=== PATIENT | female | born 1965 | race African-American/Black ===

== ENCOUNTER 2016-12-07 13:36 | Emergency (ER) | payer MEDICAID ==
[~2016-12-07] VITALS: Ht 162.6 cm; Wt 63.6 kg
[2016-12-07 13:37] VITALS: Ht 162.6 cm; Wt 63.6 kg
--- NOTE | 2016-12-07 16:14 | RADRPT ---
PROCEDURE: CT cervical spine without contrast. CLINICAL INDICATION: Injury. Post traumatic neck pain following a fall TECHNIQUE: CT of the cervical spine without contrast was performed. Axial images were obtained th rough the cervical spine and reformatted at 1.25 mm slice thickness. Coronal and sagittal images wer e reformatted. Exam CTDIvol = 22.26 mGy and DLP = 513.09 mGy-cm. COMPARISON: None available. FINDINGS: Vertebral bodies: The lordosis is reversed. Moderate anterior spondylosis from the inferior C5-2 di stal through C7 levels is present. Stature is preserved at each level. There is normal mineralizat ion and trabeculation. The C1 ring is intact and the predental space is normal. The occipital cond yles are normal in location. Central canal and cervical spinal cord: No abnormal density within the spinal cord is evident and no intraspinal masses are delineated. C2-3: The disk is within normal limits. The facet joints are normal. The uncovertebral joints and f oramina are unremarkable. The posterior elements and paraspinal soft tissues are unremarkable. C3-4: The disk is within normal limits. Mild left facet arthropathy is present the right facet esther nt is normal. The uncovertebral joints and foramina are unremarkable.The posterior elements and par aspinal soft tissues are unremarkable. C4-5: The disk is within normal limits. Moderate to severe left facet arthropathy is present contr ibuting to moderate left foraminal stenosis. The right facet joint, uncovertebral joints and right f oramen are unremarkable. The posterior elements and paraspinal soft tissues are unremarkable. C5-6: Moderate anterior spondylosis with trace disk bulging but no protrusion or central stenosis. The facet joints are normal. The uncovertebral joints and foramina are unremarkable. The posteri or elements and paraspinal soft tissues are unremarkable. C6-7: Moderate anterior spondylosis with mild loss of disk stature and trace disk bulging without protrusion or central stenosis. The facet joints are normal. The uncovertebral joints and foramina are unremarkable. The posterior elements and paraspinal soft tissues are unremarkable. C7-T1: The disk is within normal limits. Minimal bilateral facet arthropathy is present. The uncove rtebral joints and foramina are unremarkable.The posterior elements and paraspinal soft tissues are unremarkable. Non spine related findings: No abnormalities of significance are seen. RPTAT:HJJR IMPRESSION: 1. No evidence of cervical spine fracture or subluxation. 2. Reversal of the normal cervical lordosis may be positioning but cannot exclude muscle spasm. 3. Anterior spondylosis with minimal degenerative disk disease at the C5-6 and C6-7 but no associat ed stenosis. 4. Facet arthropathy most pronounced on the left at C4-5 with associated left foraminal stenosis. Jluis Osborn Physician Date Time Electronically viewed and signed by Jluis Osborn Physician on 12/07/2016 16:14 JR/
--- NOTE | 2016-12-07 16:15 | RADRPT ---
PROCEDURE: CT brain without contrast CLINICAL INDICATION: Status post fall with post traumatic headaches TECHNIQUE: A CT of the brain was performed utilizing axial sections from the skull base through th e vertex without contrast. Sagittal and coronal images were also reformatted. The exam CTDIvol = 44. 95 mGy and DLP = 900.28 mGy-cm. COMPARISON: None available FINDINGS: No acute intracranial hemorrhage is identified. There is no mass effect or midline shift. No extra -axial fluid collection is seen. The ventricles and sulci are within normal limits for size and con figuration. The density of the brain is within normal limits. Chase-white differentiation is preser perla. Incidental small smooth outer table osteoma is noted involving the left parietal bone at the convexi ty. There is no evidence of fracture, the skull base is intact. The mastoid air cells and visualiz ed paranasal sinuses are clear. RPTAT:HJJR IMPRESSION: Unremarkable noncontrast CT of the brain. Physician Melina Date Time Electronically viewed and signed by Physician Melina on 12/07/2016 16:15 /
--- NOTE | 2016-12-07 16:18 | RADRPT ---
PROCEDURE: CT facial bones without contrast CLINICAL INDICATION: Status post fall with post traumatic facial bone pain. TECHNIQUE: A CT of the face without contrast was performed utilizing axial sections from the romero ble through the orbits. Coronal and sagittal images were also reformatted. The exam CTDIvol = 29.35 mGy and DLP = 507.19 mGy-cm. COMPARISON: None available. FINDINGS: Frontal bone: Intact with the sinuses clear bilaterally. No fracture is present. Ethmoid bone: Intact, the sinuses are clear. Maxilla: Intact, the sinuses are clear bilaterally. Nasal bones: Intact bilaterally. Zygomata: Intact bilaterally. Sphenoid bone: Intact, the sinuses are clear. Mandible: Intact, the temporal mandibular joints are unremarkable. Incidental note is made that the patient is missing the right second molar, tooth #31 Temporal bones: Visualized portions are intact, the included mastoid air cells appear clear. Soft tissues: The results are unremarkable. There is no retrobulbar hematoma or proptosis. RPTAT:HJJR IMPRESSION: Unremarkable CT of the facial bones without contrast. Physician Melina Date Time Electronically viewed and signed by Physician Melina on 12/07/2016 16:18 /
--- NOTE | 2016-12-07 17:38 | ERD ---
ER Documentation Chief Complaint Date/Time DATE: 12/07/16 TIME: 17:38 Chief Complaint BIBA D/T ETOH INTOXICATION HPI Patient is a 51-year-old female with alcohol abuse who presents with altered mental status. Please note the history and physical exam is limited secondary to the patient's altered mental status at this time. The patient was brought in by ambulance. She was drinking vodka witnessed by the paramedics. She admits to alcohol. She has an abrasion to the right side of her face. She is not speaking to me at this time. Upon review of old medical records this is the patient's fifth visit to the ER since 2006. She has previous visits for alcohol abuse. Review of the emergency department information exchange shows visits to 3 separate emergency departments. ROS All systems reviewed and are negative except as per history of present illness. Medications Home Meds No Active Prescriptions or Reported Meds Allergies Allergies: Coded Allergies: No Known Allergy (Verified , 10/15/11) PMhx/Soc Medical and Surgical Hx: Unable to obtain History of Surgery: No Anesthesia Reaction: No Hx Neurological Disorder: No Hx Respiratory Disorders: No Hx Cardiac Disorders: No Hx Psychiatric Problems: No Hx Miscellaneous Medical Probl: No Hx Alcohol Use: Yes (FOUND DRINKING PER EMS REPORT) Smoking Status: Unknown if ever smoked FmHx Unable to obtain Physical Exam Vitals Vital Signs Date Time Temp Pulse Resp B/P Pulse Ox O2 Delivery O2 Flow Rate FiO2 12/07/16 13:37 98.4 104 20 129/80 100 Physical Exam Const: Intoxicated Head: Abrasion to right face Eyes: Normal Conjunctiva ENT: Normal External Ears, Nose and Mouth. Neck: Full range of motion..~ No meningismus. Resp: Clear to auscultation bilaterally Cardio: Regular rate and rhythm, no murmurs Abd: Soft, non tender, non distended. Normal bowel sounds Skin: No petechiae or rashes Back: No midline or flank tenderness Ext: No cyanosis, or edema Neur: Awake but nonverbal at this time Results 24 hrs Laboratory Tests Test 12/07/16 13:56 Bedside Glucose 74mg/dL Procedures/MDM CT head, face, and cervical spine showed no acute traumatic process per radiology. Accu-Chek is normal. Patient is a 51-year-old female presents with acute alcohol intoxication. She was watched in the emergency department for over 4 hours and is now awake, steady on her feet, and talking. I believe the patient likely drank too much alcohol. I doubt hypo-or hyperglycemia. I doubt skull fracture or intracranial hemorrhage. At this point I believe outpatient management is appropriate and she should avoid drinking alcohol to excess in the future. She can return for any worsening symptoms. Observation Note: Time: 4 hours Family Hx: Unable to obtain Evaluation: Multiple exams showed improving symptoms and no evidence of clinical decompensation. Departure Diagnosis: Primary Impression: Altered mental status Altered mental status type: unspecified Qualified Code: R41.82 - Altered mental status, unspecified altered mental status type Additional Impression: Alcoholic intoxication Complication of substance-induced condition: with delirium Qualified Code: F10.121 - Alcoholic intoxication, with delirium Condition: Fair Patient Instructions: Alcohol Intoxication Referrals: [facility] YOU HAVE RECEIVED A MEDICAL SCREENING EXAM AND THE RESULTS INDICATE THAT YOU DO NOT HAVE A CONDITION THAT REQUIRES URGENT TREATMENT IN THE EMERGENCY DEPARTMENT. FURTHER EVALUATION AND TREATMENT OF YOUR CONDITION CAN WAIT UNTIL YOU ARE SEEN IN YOUR DOCTORS OFFICE WITHIN THE NEXT 1-2 DAYS. IT IS YOUR RESPONSIBILITY TO MAKE AN APPOINTMENT FOR FOLOW-UP CARE. IF YOU HAVE A PRIMARY DOCTOR --you should call your primary doctor and schedule an appointment IF YOU DO NOT HAVE A PRIMARY DOCTOR YOU CAN CALL OUR PHYSICIAN REFERRAL HOTLINE AT IF YOU CAN NOT AFFORD TO SEE A PHYSICIAN YOU CAN CHOSE FROM THE FOLLOWING [facility] [address] [facility]. [facility] [address] [facility] [facility] [address] [facility] [facility] [address] [facility] [address] [facility] [facility]. [address] Additional Instructions: Call your primary care doctor TOMORROW for an appointment during the next 1-2 days.See the doctor sooner or return here if your condition worsens before your appointment time. JAMES SALAZAR MD Dec 07, 2016 17:38
== END 2016-12-07 17:50 | disposition home or self-care (01) ==
LOC: E/R 13:36
DX: R41.82 Altered mental status, unspecified (principal); F10.121 Alcohol abuse with intoxication delirium
CPT/HCPCS: 70450; 70486; 72125; 82962; Z7502

== ENCOUNTER 2017-08-26 17:59 | Emergency (ER) | END 2017-08-26 22:57 | disposition home or self-care (01) ==

== ENCOUNTER 2017-10-25 15:15 | Emergency (ER) | END 2017-10-26 02:25 | disposition home or self-care (01) ==